=== PATIENT | female | born 1940 | race Caucasian/White ===

== ENCOUNTER 2022-01-26 06:00 | Outpatient (CLI) | payer MEDICARE, BC, SELFPAY | END 2022-01-26 06:01 | disposition home or self-care (01) | LOC: RAD 02-08 12:10 | PROVIDERS: PCP Family Medicine; Visit Provider Internal Medicine | DX: M79.662 Pain in left lower leg (principal); M25.50 Pain in unspecified joint; M19.072 Primary osteoarthritis, left ankle and foot; M19.071 Primary osteoarthritis, right ankle and foot; R60.9 Edema, unspecified; M19.042 Primary osteoarthritis, left hand; M19.041 Primary osteoarthritis, right hand; M16.0 Bilateral primary osteoarthritis of hip; M17.0 Bilateral primary osteoarthritis of knee; M47.816 Spondylosis without myelopathy or radiculopathy, lumbar region; M47.812 Spondylosis without myelopathy or radiculopathy, cervical region; L40.9 Psoriasis, unspecified; M25.9 Joint disorder, unspecified; Z11.59 Encounter for screening for other viral diseases | CPT/HCPCS: 72040; 72100; 72202; 73120; 73522; 73560; 73620; 93971; 99204 ==

== ENCOUNTER 2022-02-07 09:37 | Outpatient (CLI) | payer MEDICARE, BC, SELFPAY ==
[2022-02-07 10:26] LABS: Add Urine Microscopic? NO; Charge for UA Resulting for Rev
[2022-02-07 10:37] LABS: Bilirubin Urine Neg (Negative); Blood Urine Neg (Negative); Glucose Urine UA Norm (Normal); Ketones Urine Negative (Negative); Leukocyte Esterase Urine Negative (Negative); Nitrate Urine Negative (Negative); Protein Urine Neg (Negative); Urine Appearance Clear (CLEAR); Urine Color Straw (Yellow); Urobilinogen Urine Norm (Negative); pH Urine 6 (5-7)
[2022-02-07 10:51] LABS: Erythrocyte Sedimentation Rate 16 mm/hr (0-15)
[2022-02-07 11:06] LABS: C Reactive Protein 7.9 mg/L (0.0-4.9); Creatine Phosphokinase 65 U/L (26-192); Phosphorus 3.4 mg/dL (2.5-4.5); Uric Acid 2.8 mg/dL (2.4-5.7)
[2022-02-07 11:20] LABS: Vitamin B12 532 pg/mL (232-1245)
[2022-02-07 11:22] LABS: Hepatitis B Core AB, Total Non-Reactive (Nonreactive); Hepatitis B Surface Antigen Non-Reactive (Nonreactive); Hepatitis C Virus Antibody Non-Reactive (Nonreactive)
[2022-02-08 15:42] LABS: THYROID PEROXIDASE ANTIBODIES <1 IU/mL (<9)
[2022-02-09 12:03] LABS: ANA SCREEN, IFA NEGATIVE (NEGATIVE)
[2022-02-09 14:03] LABS: COMPLEMENT COMPONENT C3C 145 mg/dL (83-193); COMPLEMENT COMPONENT C4C 19 mg/dL (15-57)
[2022-02-09 14:18] LABS: CENTROMERE B ANTIBODY <1.0 NEG AI (<1.0 NEG); JO-1 ANTIBODY <1.0 NEG AI (<1.0 NEG); RNP ANTIBODY <1.0 NEG AI (<1.0 NEG); SCL-70 ANTIBODY <1.0 NEG AI (<1.0 NEG); SJOGREN'S ANTIBODY (SS-A) <1.0 NEG AI (<1.0 NEG); SM ANTIBODY <1.0 NEG AI (<1.0 NEG); SS-B <1.0 NEG AI (<1.0 NEG)
[2022-02-09 14:27] LABS: COMPLEMENT, TOTAL (CH50) >60 U/mL (31-60)
[2022-02-10 10:57] LABS: DNA AB (DS) CRITHIDIA,IFA NEGATIVE (NEGATIVE)
== END 2022-02-07 09:38 | disposition home or self-care (01) ==
LOC: LAB 09:42
PROVIDERS: PCP Family Medicine; Visit Provider Internal Medicine
DX: R60.9 Edema, unspecified (principal)
CPT/HCPCS: 81003; 82550; 82607; 83735; 84100; 84550; 85651; 86140; 86160; 86162; 86235; 86255; 86376; 86704; 86803; 87340

== ENCOUNTER → 2022-03-03 14:07 | Outpatient (BNVA) | payer MEDICARE, BC, SELFPAY | PROVIDERS: PCP Family Medicine; Visit Provider Internal Medicine | DX: M25.50 Pain in unspecified joint (principal) | CPT/HCPCS: 99214 ==